=== PATIENT | male | born 1940 | race Caucasian/White ===

== ENCOUNTER → 2025-03-04 06:56 | Outpatient (REF) | payer OTHER, SELFPAY ==
[2025-03-04] VITALS (8 sets, daily range): BP systolic 76–136; BP diastolic 61–82
[2025-03-04 07:37] LABS: Hematocrit 29.9 % (39.0-52.0); Hemoglobin 9.3 g/dL (13.0-18.0); Mean Corp Hgb Conc. 31.1 g/dL (33.0-37.0); Mean Corpuscular Volume 80.8 fL (80.0-94.0); Nucleated Red Blood Cells % 0 % (-); Platelet Count 250 10^3/uL (130-400); Red Cell Dist. Width 15.6 % (11.5-14.5)
[2025-03-04] MEDS: ATIVAN 0.5 MG PO (07:41)
[2025-03-04 07:43] LABS: INR 0.92; PT 12.7 Sec (11.4-14.6)
== END ==
LOC: RADI 06:56
PROVIDERS: ATTENDING PHYSICIAN Internal Medicine Hematology & Oncology; FAMILY PHYSICIAN Internal Medicine Geriatric Medicine
DX: D64.9 Anemia, unspecified (principal); D68.8 Other specified coagulation defects
CPT/HCPCS: 36415; 38222; 77012; 85025; 85610; 88305; 88311; 88312; 88313